=== PATIENT | male | born 1990 | race Caucasian/White ===

== ENCOUNTER 2021-08-06 16:28 | Emergency (ER) | payer OTHER ==
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
== END 2021-08-06 19:14 | disposition home or self-care (01) ==
LOC: MW.ED 16:28
DX: Z04.1 Encounter for examination and observation following transport accident (principal)
CPT/HCPCS: 99282